=== PATIENT | male | born 1990 | race Hispanic/Latino ===

== ENCOUNTER 2017-01-05 09:34 | Emergency (ER) | payer OTHER ==
--- NOTE | 2017-01-05 10:18 | ED.PDOC ---
History of Present Illness - General Stated Complaint: left eye swollen Time Seen by Provider: 01/05/17 09:48 Source: patient, RN notes reviewed, Vital Signs reviewed Exam Limitations: no limitations - History of Present Illness Initial Comments: Patient presents to the ER with c/o L eyelid swelling. Symptoms started over the weekend. His eyelid feels heavy and droopy. He was struck on the L frontal area with a pipe last . He was seen @ [facility]. Had CT scan done and wound stapled and sutured closed. No visual changes. Timing/Duration: gradual Severity: moderate EENT Location: eye (L) Prearrival Treatment: no prearrival treatment Improving Factors: nothing Worsening Factors: nothing Associated Symptoms: facial pain/swelling Allergies/Adverse Reactions: Allergies NO KNOWN ALLERGY Allergy (Verified 03/28/12 14:41) Home Medications: Ambulatory Orders Tramadol HCl [Ultram] 50 mg PO Q6HR PRN #20 tab 11/15/15 Review of Systems - Review of Systems Constitutional: States: no symptoms reported EENTM: States: see HPI Respiratory: States: no symptoms reported Cardiology: States: no symptoms reported Musculoskeletal: States: no symptoms reported Skin: States: no symptoms reported Neurological: States: no symptoms reported All other Systems: No Change from Baseline Past Medical History (General) - Patient Medical History Hx Stroke: No Hx Asthma: No Hx Congestive Heart Failure: No Hx Hypertension: No Hx Diabetes: No Hx MRSA: No - Vaccination History Hx Tetanus, Diphtheria Vaccination: Yes Hx Influenza Vaccination: No Hx Pneumococcal Vaccination: No - Social History Hx Tobacco Use: Yes Family Medical History - Family History Mother Family History: No Known Living Status: Still Living Physical Exam - Physical Exam General Appearance: Alert, Comfortable, No apparent distress, Well Developed, Well Groomed, Well Hydrated, Well Nourished Eye Exam: bilateral normal - except L eyelid is swollen and mildly bruised. 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 Healing well, no signs of infection Comments: Visual Acuity: R 20/20. L 20/25 Progress - Progress Progress: 01/05/17 10:21 Discussed that eyelid swelling is most likely due to gravity pulling swelling and bleeding from head injury down to eyelid. Need to treat with Ice and heat to decrease the swelling and break down and blood. Reassurance that no further injury or treatment is needed. Departure - Departure Clinical Impression: Swelling of left eyelid Time of Disposition: 10:23 Disposition: Discharge to Home or Self Care Condition: Good Instructions: Eye Contusion Diet: resume usual diet Activity: increase activity as tolerated Home Medications: Ambulatory Orders Tramadol HCl [Ultram] 50 mg PO Q6HR PRN #20 tab 11/15/15 Additional Instructions: Alternate heat and ice to eyelid 3-5X/day for 10-15 minutes each time.
[2017-01-05 10:37] VITALS: BP 136/81; TEMP 98.6; O2SAT 98
== END 2017-01-05 10:45 | disposition home or self-care (01) ==
LOC: ER 09:34
DX: H02.844 Edema of left upper eyelid (principal); Z87.891 Personal history of nicotine dependence

== ENCOUNTER 2018-06-19 18:28 | Emergency (ER) | payer SELFPAY ==
[2018-06-19] MEDS ORDERED: CEPHALEXIN MONOHYDRATE 500 MG CAP PO ONE (18:41)
[2018-06-19] MEDS ORDERED: TETANUS,DIPHTHERIA,PERTUSSIS 1 EA SYG IM ONE (18:41)
--- NOTE | 2018-06-19 18:41 | ED.PDOC ---
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 Timing/Duration: yesterday Severity: moderate Location: extremities - left arm Improving Factors: movement Worsening Factors: rest Associated Symptoms: other - pain/laceration Allergies/Adverse Reactions: Allergies NO KNOWN ALLERGY Allergy (Verified 03/28/12 14:41) Home Medications: Ambulatory Orders Acetamin W/Cod #3 Tab [Tylenol w/CODEINE #3] 1 ea PO Q6HRS PRN #10 tab 06/19/18 Cephalexin 1,000 mg PO BID #20 cap 06/19/18 Review of Systems - Review of Systems Skin: States: see HPI, other - laceration All other Systems: Reviewed and Negative, No Change from Baseline Past Medical History (General) - Patient Medical History Hx Stroke: No Hx Asthma: No Hx Congestive Heart Failure: No Hx Hypertension: No Hx Diabetes: No Hx MRSA: No Surgical History: no surgical history - Vaccination History Hx Tetanus, Diphtheria Vaccination: Yes Hx Influenza Vaccination: No Hx Pneumococcal Vaccination: No - Social History Hx Tobacco Use: Yes Family Medical History - Family History Mother Family History: No Known Living Status: Still Living Physical Exam - Physical Exam General Appearance: Alert, Comfortable, No apparent distress Eyes, Ears, Nose, Throat Exam: normal ENT inspection Neck: supple, normal inspection Cardiovascular/Chest: regular rate, rhythm, no murmur Respiratory: lungs clear, normal breath sounds Gastrointestinal/Abdominal: soft Back Exam: normal inspection Extremity: no pedal edema, no calf tenderness Neurologic: no motor/sensory deficits, alert, oriented x 3 Skin Exam: warm/dry, normal color Skin Problem Location: upper extremities - left arm Skin Character: other - 9 cm laceration gaping ,no active bleeding left arm Progress - Progress Progress: 06/19/18 18:47 Vital Signs - 8 hr 06/19/18 18:38 Temperature 99.3 F Pulse Rate [ 103 H Right Brachial] Respiratory 20 Rate Blood Pressure 135/87 [Right Arm] O2 Sat by Pulse 95 Oximetry Procedures - Laceration/Wound Repair Left Arm Wound Length (cm): 9 Wound's Depth, Shape: linear Wound Explored: no foreign body removed Irrigated w/ Saline (cc's): 50 Betadine Prep?: No - hibiclens Anesthesia: Lidocaine w/ Epi Volume Anesthetic (cc's): 10 Wound Repaired With: angelito Layer Closure?: No Deep Layer Suture Size/Type: vicryl Departure - Departure Clinical Impression: Laceration of left upper arm without complication Qualifiers: Encounter type: initial encounter Qualified Code(s): S41.112A - Laceration without foreign body of left upper arm, initial encounter Struck by sharp object Qualifiers: Encounter type: initial encounter Qualified Code(s): W22.8XXA - Striking against or struck by other objects, initial encounter Time of Disposition: 19:53 Disposition: Discharge to Home or Self Care Departure Forms: ED Discharge - Pt. Copy, Patient Portal Self Enrollment Instructions: DI for Laceration Repair, DI for Laceration Repair -- Angelito, DI for Wound Infection Prescriptions: Acetamin W/Cod #3 Tab [Tylenol w/CODEINE #3] 1 ea PO Q6HRS PRN #10 tab PRN Reason: Pain Cephalexin 1,000 mg PO BID #20 cap Home Medications: Ambulatory Orders Acetamin W/Cod #3 Tab [Tylenol w/CODEINE #3] 1 ea PO Q6HRS PRN #10 tab 06/19/18 Cephalexin 1,000 mg PO BID #20 cap 06/19/18 Additional Instructions: Removal of angelito 02 Jul 2018 [facility];Return to ER as needed
[2018-06-19 18:42] VITALS: BP 135/87; O2SAT 95
[2018-06-19] MEDS ORDERED: LIDOCAINE 1% W/ EPINEPHRINE 20 ML VIAL INJ ONE (18:50)
[2018-06-19] MEDS ORDERED: CHLORHEXIDINE GLUCONATE 4 % 15 ML UD TOP ONE (18:50)
[2018-06-19] MEDS ORDERED: MORPHINE SULFATE INJ 10 MG/ML VIAL IM ONE (18:52)
[2018-06-19] MEDS ORDERED: PROMETHAZINE HCL INJ 25 MG/ML VIAL IM ONE (18:53)
[2018-06-19] MEDS ORDERED: HYDROCOD/APAP 5/325 (ER DISP) #3 TAB PO ONE (19:59)
[2018-06-19 20:10] VITALS: TEMP 98.5
== END 2018-06-19 20:05 | disposition home or self-care (01) ==
LOC: ER 18:28
DX: S41.112A Laceration without foreign body of left upper arm, initial encounter (principal); W45.8XXA Other foreign body or object entering through skin, initial encounter; Y99.0 Civilian activity done for income or pay; Y92.69 Other specified industrial and construction area as the place of occurrence of the external cause; Z87.891 Personal history of nicotine dependence
CPT/HCPCS: 90471; 90715; J2270; J2550

== ENCOUNTER 2018-10-01 15:08 | Emergency (ER) | payer SELFPAY ==
[2018-10-01] MEDS ORDERED: DEXAMETHASONE INJ 4 MG/ML VIAL IM ONE (15:36)
[2018-10-01] MEDS ORDERED: KETOROLAC TROMETHAMINE INJ 30 MG/ML VIAL IM ONE (15:36)
--- NOTE | 2018-10-01 15:41 | ED.PDOC ---
History of Present Illness - General Chief Complaint: General Stated Complaint: thumbs swollen and painful since Thursday Time Seen by Provider: 10/01/18 15:36 Source: patient Exam Limitations: no limitations - History of Present Illness Initial Comments: patient comes in today for four-day history of severe bilateral thumb pain. 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 He states the pain is excruciating with pressure and both feel like they've gone numb. Patient states they're extremely swollen and today he was just unable to go to work. In the past he's had bouts where he's had some numbness on one thumb or the other but never been this severe, it resolved on its own, and patient has never had them swollen. He is otherwise healthy and has no past medical history. He has no known drug allergies. Timing/Duration: getting worse Severity: severe Improving Factors: nothing Worsening Factors: movement Associated Symptoms: denies symptoms Allergies/Adverse Reactions: Allergies NO KNOWN ALLERGY Allergy (Verified 03/28/12 14:41) Home Medications: Ambulatory Orders Acetamin W/Cod #3 Tab [Tylenol w/CODEINE #3] 1 ea PO Q6HRS PRN #10 tab 06/19/18 Cephalexin 1,000 mg PO BID #20 cap 06/19/18 Review of Systems - Review of Systems Constitutional: States: no symptoms reported. Denies: chills, fever EENTM: States: no symptoms reported. Denies: blurred vision, nose congestion Respiratory: States: no symptoms reported. Denies: cough, short of breath Cardiology: States: no symptoms reported. Denies: chest pain, edema, palpitations Gastrointestinal/Abdominal: States: no symptoms reported. Denies: abdominal pain, diarrhea, nausea Musculoskeletal: States: see HPI Past Medical History (General) - Patient Medical History Hx Stroke: No Hx Asthma: No Hx Congestive Heart Failure: No Hx Hypertension: No Hx Diabetes: No Hx MRSA: No - Vaccination History Hx Tetanus, Diphtheria Vaccination: Yes Hx Influenza Vaccination: No Hx Pneumococcal Vaccination: No - Social History Hx Tobacco Use: Yes Family Medical History - Family History Mother Family History: No Known Living Status: Still Living Physical Exam - Physical Exam General Appearance: Alert, Comfortable, No apparent distress Ears, Nose, Throat: hearing grossly normal Respiratory: chest non-tender, lungs clear Cardiovascular/Chest: normal peripheral pulses, regular rate, rhythm Extremity: swelling - bilateral edema to thenar eminence with no erythema, no fluctulance and TTP with reproduction of pain , other Neurologic: alert, oriented x 3 Progress - Progress Progress: 10/01/18 15:45 discussed most likely overuse from job Trial of Toradol and decadron now, rest, ice and follow up in the clinic in 2-3 days. Will need work excuse. - Results/Orders Results/Orders: Laboratory Results WBC 6.0 K/mm3 (4.8-10.8) 10/01/18 15:46 RBC 4.80 M/mm3 (4.70-6.10) 10/01/18 15:46 Hgb 14.8 gm/dL (14.0-18.0) 10/01/18 15:46 Hct 42.8 % (42.0-52.0) 10/01/18 15:46 MCV 89.2 fl (80.0-94.0) 10/01/18 15:46 MCH 30.9 pg (27.0-31.0) 10/01/18 15:46 MCHC 34.7 g/dL (33.0-37.0) 10/01/18 15:46 RDW 13.3 % (11.5-14.5) 10/01/18 15:46 Plt Count 228 K/mm3 (130-400) 10/01/18 15:46 MPV 9.0 fl (7.40-10.4) 10/01/18 15:46 Absolute Neuts (auto) 3.30 K/uL (1.8-6.8) 10/01/18 15:46 Absolute Lymphs (auto) 2.00 K/uL (1.0-3.4) 10/01/18 15:46 Absolute Monos (auto) 0.50 K/uL (0.2-0.8) 10/01/18 15:46 Absolute Eos (auto) 0.10 K/uL (0.0-0.4) 10/01/18 15:46 Absolute Basos (auto) 0.00 K/uL (0.0-0.1) 10/01/18 15:46 Neutrophils % 56.0 % (42.0-78.0) 10/01/18 15:46 Lymphocytes % 33.8 % (20.0-50.0) 10/01/18 15:46 Monocytes % 8.3 % (2.0-9.0) 10/01/18 15:46 Eosinophils % 1.5 % (1.0-5.0) 10/01/18 15:46 Basophils % 0.4 % (0.0-2.0) 10/01/18 15:46 Sodium 139 mmol/L (135-145) 10/01/18 15:46 Potassium 3.9 mmol/L (3.6-5.0) 10/01/18 15:46 Chloride 107 mmol/L (101-111) 10/01/18 15:46 Carbon Dioxide 22 mmol/L (21-31) 10/01/18 15:46 Anion Gap 13.9 (12-18) 10/01/18 15:46 BUN 9 mg/dL (7-18) 10/01/18 15:46 Creatinine 0.77 mg/dL (0.6-1.3) 10/01/18 15:46 BUN/Creatinine Ratio 11.7 (10-20) 10/01/18 15:46 Random Glucose 96 mg/dL (70-105) 10/01/18 15:46 Serum Osmolality 276.1 mOsm/L (275-295) 10/01/18 15:46 Calcium 9.0 mg/dL (8.4-10.2) 10/01/18 15:46 Total Bilirubin 0.7 mg/dL (0.2-1.0) 10/01/18 15:46 AST 28 IU/L (10-42) 10/01/18 15:46 ALT 19 IU/L (10-60) 10/01/18 15:46 Alkaline Phosphatase 82 IU/L (42-121) 10/01/18 15:46 Serum Total Protein 7.2 gm/dL (6.4-8.2) 10/01/18 15:46 Albumin 4.3 g/dl (3.2-5.5) 10/01/18 15:46 Globulin 2.9 gm/dL (2.3-3.5) 10/01/18 15:46 Albumin/Globulin Ratio 1.5 (1.1-1.9) 10/01/18 15:46 Departure - Departure Clinical Impression: Overuse injury Disposition: Discharge to Home or Self Care Condition: Fair Departure Forms: ED Discharge - Pt. Copy, Patient Portal Self Enrollment Home Medications: Ambulatory Orders Acetamin W/Cod #3 Tab [Tylenol w/CODEINE #3] 1 ea PO Q6HRS PRN #10 tab 06/19/18 Cephalexin 1,000 mg PO BID #20 cap 06/19/18 Additional Instructions: ice to area and OTC IBU 800 mg po tid (do not start for 8 hours secondary to toradol given here). follow up in clinic in 2-3 days. work excuse for 4 days
[2018-10-01 16:42] VITALS: BP 128/85; TEMP 98.8; O2SAT 98
== END 2018-10-01 16:40 | disposition home or self-care (01) ==
LOC: ER 15:08
DX: M70.90 Unspecified soft tissue disorder related to use, overuse and pressure of unspecified site (principal); R60.0 Localized edema; Y99.0 Civilian activity done for income or pay; Y92.69 Other specified industrial and construction area as the place of occurrence of the external cause; Z87.891 Personal history of nicotine dependence
CPT/HCPCS: 36415; 80053; 85025; J1100; J1885

== ENCOUNTER 2019-08-02 07:37 | Emergency (ER) | payer SELFPAY ==
[2019-08-02] MEDS: ONDANSETRON INJ 4 MG/2 ML VIAL IV ONE (08:21)
[2019-08-02] MEDS: SODIUM CHLORIDE 0.9% 1000ML 1,000 ML IVS ONE ×2 (08:22→09:02)
--- NOTE | 2019-08-02 08:56 | ED.PDOC ---
History of Present Illness - General Chief Complaint: GI Problem Stated Complaint: nausea and vomiting Time Seen by Provider: 08/02/19 08:52 Source: patient, RN notes reviewed, Vital Signs reviewed, family - Mother Exam Limitations: no limitations - History of Present Illness Initial Comments: Patient is a 28-year-old male who works in the [employer] Patient has been feeling sick to his stomach for the last day or so. Patient complains of chills yesterday and today. Patient has been constantly vomiting for the last 24 hours. Patient denies any diarrhea. He also denies fever. Patient quit drinking and smoking approximately 3 weeks ago. Prior to that he was smoking 1 pack of cigarettes a day and drinking a 12 pack daily. Patient does complain of having mild shakes for the last week or so. Nothing seems to make the vomiting better. It is worse with eating or drinking. It is moderate in intensity. Mild cramping sensation in his upper abdomen. Timing/Duration: 24 hours Severity: moderate Improving Factors: nothing Worsening Factors: eating Associated Symptoms: fever/chills - Chills only, nausea/vomiting Allergies/Adverse Reactions: Allergies NO KNOWN ALLERGY Allergy (Verified 03/28/12 14:41) Home Medications: Ambulatory Orders Acetamin W/Cod #3 Tab [Tylenol w/CODEINE #3] 1 ea PO Q6HRS PRN #10 tab 06/19/18 Cephalexin 1,000 mg PO BID #20 cap 06/19/18 Review of Systems - Review of Systems Constitutional: States: see HPI, chills, malaise. Denies: fever, weakness EENTM: States: no symptoms reported. Denies: eye pain, blurred vision, double vision, throat pain, throat swelling Respiratory: States: no symptoms reported. Denies: cough, short of breath, stridor, wheezing Cardiology: States: no symptoms reported. Denies: chest pain, palpitations, syncope Gastrointestinal/Abdominal: States: see HPI, abdominal pain, nausea, vomiting. Denies: diarrhea Genitourinary: States: no symptoms reported Musculoskeletal: States: no symptoms reported. Denies: back pain, joint pain, neck pain Skin: States: no symptoms reported. Denies: change in color, rash Neurological: States: no symptoms reported. Denies: headache, numbness, tingling, tremors Endocrine: States: no symptoms reported Hematologic/Lymphatic: States: no symptoms reported All other Systems: Reviewed and Negative Past Medical History (General) - Patient Medical History Hx Stroke: No Hx Asthma: No Hx Congestive Heart Failure: No Hx Hypertension: No Hx Diabetes: No Hx MRSA: No - Vaccination History Hx Tetanus, Diphtheria Vaccination: Yes Hx Influenza Vaccination: No Hx Pneumococcal Vaccination: No - Social History Hx Tobacco Use: Yes Hx Alcohol Use: No Family Medical History - Family History Mother Family History: No Known Living Status: Still Living Physical Exam - Physical Exam General Appearance: Alert, Anxious, Unkempt - Patient and pattie were close from his [employer] job site., Well Developed, Well Hydrated, Well Nourished Eye Exam: bilateral normal Ears, Nose, Throat: hearing grossly normal, normal ENT inspection, normal pharynx Neck: non-tender, full range of motion, supple, normal inspection Respiratory: chest non-tender, lungs clear, normal breath sounds, no respiratory distress, no accessory muscle use Cardiovascular/Chest: normal peripheral pulses, regular rate, rhythm, no edema, no gallop, no JVD, no murmur Peripheral Pulses: radial,right: 2+, radial,left: 2+ Gastrointestinal/Abdominal: normal bowel sounds, non tender, soft, no organomegaly, no pulsatile mass Back Exam: normal inspection, no CVA tenderness, no vertebral tenderness Extremity: normal range of motion, non-tender, normal inspection, no pedal edema 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 08/02/19 09:39 Patient symptoms have completely resolved after IV fluids and IV Zofran. I think the patient has mild heat exhaustion on top of dehydration. Plan on discharge home with a prescription for Zofran and recommendation for increased fluid intake. I have had a long discussion with the patient and his mother regarding treatment plan. They voiced understanding and agreement. Yony Sexton M.D. #[id number] - Results/Orders Results/Orders: 08/02/19 08:04 Sodium Chloride 0.9% 1000ML [Ns 1000 ml] 1,000 ml IVS ONCE 08/02/19 08:52 BOLUS Sodium Chloride 0.9% 1000ML [Ns 1000 ml] 1,000 ml IVS ONCE Laboratory Results - last 24 hr 08/02/19 08/02/19 08/02/19 08:04 08:05 08:05 WBC 7.2 RBC 5.65 Hgb 16.9 Hct 49.6 MCV 87.8 MCH 29.9 MCHC 34.0 RDW 13.1 Plt Count 281 MPV 9.6 Absolute Neuts (auto) 4.80 Absolute Lymphs (auto) 1.60 Absolute Monos (auto) 0.80 Absolute Eos (auto) 0.00 Absolute Basos (auto) 0.00 Neutrophils % 66.0 Lymphocytes % 22.2 Monocytes % 10.8 H Eosinophils % 0.6 L Basophils % 0.4 Sodium 138 Potassium 3.5 L Chloride 102 Carbon Dioxide 24 Anion Gap 15.5 BUN 23 H Creatinine 1.24 BUN/Creatinine Ratio 18.5 Random Glucose 97 Serum Osmolality 279.3 Calcium 9.7 Total Bilirubin 0.9 AST 20 ALT 15 Alkaline Phosphatase 91 Creatine Kinase 149 Serum Total Protein 8.6 H Albumin 5.4 Globulin 3.2 Albumin/Globulin Ratio 1.7 Urine Color Yellow Urine Appearance Sl cloudy Urine pH 5.5 Ur Specific [place] >= 1.030 Urine Protein 30 Urine Glucose (UA) Negative Urine Ketones Negative Urine Blood Negative Urine Nitrite Negative Urine Bilirubin Small H Urine Urobilinogen 0.2 Ur Leukocyte Esterase Negative Urine RBC 0 Urine WBC 0-1 Ur Epithelial Cells 0 Amorphous Sediment 1+ Urine Bacteria 0 Urine Mucus Large Urine Sperm 1-3 Urine Opiates Screen Urine Barbiturates Ur Phencyclidine Scrn U Amphetamin/Meth Scrn U Benzodiazepines Scrn U Cocaine Metab Screen U Cannabinoids Screen 08/02/19 08:05 WBC RBC Hgb Hct MCV MCH MCHC RDW Plt Count MPV Absolute Neuts (auto) Absolute Lymphs (auto) Absolute Monos (auto) Absolute Eos (auto) Absolute Basos (auto) Neutrophils % Lymphocytes % Monocytes % Eosinophils % Basophils % Sodium Potassium Chloride Carbon Dioxide Anion Gap BUN Creatinine BUN/Creatinine Ratio Random Glucose Serum Osmolality Calcium Total Bilirubin AST ALT Alkaline Phosphatase Creatine Kinase Serum Total Protein Albumin Globulin Albumin/Globulin Ratio Urine Color Urine Appearance Urine pH Ur Specific [place] Urine Protein Urine Glucose (UA) Urine Ketones Urine Blood Urine Nitrite Urine Bilirubin Urine Urobilinogen Ur Leukocyte Esterase Urine RBC Urine WBC Ur Epithelial Cells Amorphous Sediment Urine Bacteria Urine Mucus Urine Sperm Urine Opiates Screen Negative Urine Barbiturates Negative Ur Phencyclidine Scrn Negative U Amphetamin/Meth Scrn Negative U Benzodiazepines Scrn Negative U Cocaine Metab Screen Negative U Cannabinoids Screen Positive H Departure - Departure Clinical Impression: Dehydration Heat exhaustion Qualifiers: Encounter type: initial encounter Qualified Code(s): T67.5XXA - Heat exhaustion, unspecified, initial encounter Time of Disposition: 09:42 Disposition: Discharge to Home or Self Care Condition: Good Departure Forms: ED Discharge - Pt. Copy, Patient Portal Self Enrollment Instructions: Heat Exhaustion and Heat Stroke (DC), Dehydration, Adult (DC) Diet: resume usual diet Activity: increase activity as tolerated Home Medications: Ambulatory Orders Acetamin W/Cod #3 Tab [Tylenol w/CODEINE #3] 1 ea PO Q6HRS PRN #10 tab 06/19/18 Cephalexin 1,000 mg PO BID #20 cap 06/19/18
[2019-08-02 10:02] VITALS: BP 111/74; TEMP 98.3; O2SAT 98
== END 2019-08-02 09:59 | disposition home or self-care (01) ==
LOC: ER 07:37
DX: T67.5XXA Heat exhaustion, unspecified, initial encounter (principal); E86.0 Dehydration; F17.210 Nicotine dependence, cigarettes, uncomplicated; Y92.9 Unspecified place or not applicable
CPT/HCPCS: 36415; 80053; 80307; 81001; 82550; 85025; J2405; J7030